=== PATIENT | female | born 2000 | race African-American/Black ===

== ENCOUNTER 2020-08-18 19:12 | Emergency (ER) | payer SELFPAY ==
[~2020-08-18] VITALS: Ht 172.7 cm; Wt 104.5 kg
[2020-08-18 19:25] VITALS: BP 118/72
--- NOTE | 2020-08-18 19:49 | PHYS DOC ---
General Adult EDM: Chief Complaint: ABDOMINAL PAIN HPI: HPI: Patient is a 20-year-old female who presents with generalized abdominal pain, nausea/vomiting since last night. Patient states that the abdominal pain is constant, sharp. Patient denies diarrhea. Patient denies fever. Patient states she took something for nausea prior to arrival. She denies dysuria or frequency. Denies any medical history. (ENRICO DAILY APRN) Review of Systems: Review of Systems: Constitutional: Denies fever or chills Eyes: Denies change in visual acuity HENT: Denies nasal congestion or sore throat Respiratory: Denies cough or shortness of breath Cardiovascular: Denies chest pain or edema GI: Reports abdominal pain, nausea, vomiting. Denies bloody stools or diarrhea : Denies dysuria Musculoskeletal: Denies back pain or joint pain Integument: Denies rash Neurologic: Denies headache, focal weakness or sensory changes Endocrine: Denies polyuria or polydipsia Lymphatic: Denies swollen glands Psychiatric: Denies depression or anxiety (ENRICO DAILY APRN) Allergies: Allergies: Allergies Coded Allergies Type Severity Reaction Last Updated Verified No Known Drug Allergies 08/18/20 No (ENRICO DAILY APRN) Physical Exam: PE: Constitutional: Well developed, well nourished, no acute distress, non-toxic appearance. HENT: Normocephalic, atraumatic, bilateral external ears normal, oropharynx moist, no oral exudates, nose normal. Eyes: PERRLA, EOMI, conjunctiva normal, no discharge. Neck: Normal range of motion, no tenderness, supple, no stridor. Cardiovascular:Heart rate regular rhythm, no murmur Lungs & Thorax: Bilateral breath sounds clear to auscultation Abdomen: Bowel sounds normal, soft, no tenderness Skin: Warm, dry, no erythema, no rash. Back: No tenderness, no CVA tenderness. Extremities: No tenderness, no cyanosis, no clubbing, ROM intact, no edema. Neurologic: Alert and oriented X 3, normal motor function, normal sensory function, no focal deficits noted. Psychologic: Affect normal, judgement normal, mood normal. (ENRICO DAILY APRN) EKG: EKG: [] (ENRICO DAILY APRN) Radiology/Procedures: Radiology/Procedures: [] (ENRICO DAILY APRN) Impressions: CT STUDY OF THE ABDOMEN AND PELVIS WITHOUT CONTRAST CLINICAL INDICATIONS: Abdominal pain. TECHNIQUE: Noncontrast helical CT scanning of the abdomen and pelvis was performed. Without contrast, the sensitivity to detect organ pathology and GI tract pathology is decreased. PQRS compliance Statement One or more of the following individualized dose reduction techniques were utilized for this study: 1. Automated exposure control 2. Adjustment of the mA and/or kV according to patient size 3. Use of iterative reconstruction technique COMPARISON: None available. FINDINGS: The liver and spleen and pancreas are unremarkable on this noncontrast study. Gallbladder is small. No extrahepatic biliary ductal dilatation is seen. No adrenal mass is evident. No hydronephrosis or hydroureter or ureteral stone is seen. Urinary bladder wall is smooth. No uterine mass is seen. No dominant ovarian cyst or mass is apparent. No focal aneurysmal dilatation of the abdominal aorta is seen. No bulky abdominal or pelvic lymphadenopathy is seen. Sigmoid diverticulosis is seen without diverticulitis. Terminal ileum is unremarkable. The appendix is normal. No obstructive bowel pattern is seen. No free air or free fluid or mesenteric edema is seen. No lung base consolidation is evident. No lytic process is seen. IMPRESSION: No acute abnormality. Electronically signed by: Mauro Sheridan MD (08/18/2020 10:10 PM) [id number] DICTATED AND SIGNED BY: MAURO SHERIDAN MD DATE: 08/18/202204 CC: EDY NGUYEN DO; ENRICO DAILY APRN; PCP,NO ~MTH0 0 (EDY NGUYEN DO) Heart Score: C/O Chest Pain: No Risk Factors: Risk Factors: DM, Current or recent (<one month) smoker, HTN, HLP, family history of CAD, obesity. Risk Scores: Score 0 - 3: 2.5% MACE over next 6 weeks - Discharge Home Score 4 - 6: 20.3% MACE over next 6 weeks - Admit for Clinical Observation Score 7 - 10: 72.7% MACE over next 6 weeks - Early Invasive Strategies (ENRICO DAILY APRN) C/O Chest Pain: No (EDY NGUYEN DO) Course & Med Decision Making: Course & Med Decision Making Pertinent Labs and Imaging studies reviewed. (See chart for details) [] Patient is being seen in the emergency room for abdominal pain, nausea/vomiting since last night. Fluids given for dehydration. CT of abdomen and pelvis ordered. UA and ordered to rule out infection and/or . Patient requesting pain medication. Morphine given. Transfer of patient care to Dr. Nguyen (ENRICO DAILY APRN) Course & Med Decision Making The patient's labs are unremarkable. Her CT of the abdomen and pelvis is negative for acute findings. Her labs are unremarkable. Give the patient additional Reglan and Benadryl for her vomiting. Her vomiting is now controlled . I will discharge her with a prescription for Zofran ODT. She is ready to go home and go to bed. She is stable for discharge at this time. (EDY NGUYEN DO) Dragon Disclaimer: Dragon Disclaimer: This electronic medical record was generated, in whole or in part, using a voice recognition dictation system. (ENRICO DAILY APRN) Departure Departure: Impression: Primary Impression: Viral gastroenteritis Disposition: HOME / SELF CARE / HOMELESS Condition: STABLE Referrals: PCP,NO (PCP) Patient Instructions: Viral Gastroenteritis, [facility] Scripts Metoclopramide Hcl (REGLAN) 10 Mg Tablet 1 TAB PO TID PRN for VOMITING for 3 Days, #9 TAB 0 Refills Prov: EDY NGUYEN DO 08/18/20 Ondansetron (ONDANSETRON ODT) 4 Mg Tab.rapdis 1-2 TAB PO Q8HRS PRN for VOMITING, #16 TAB Prov: EDY NGUYEN DO 08/18/20 ENRICO DAILY APRN Aug 18, 2020 19:49 EDY NGUYEN DO Aug 18, 2020 22:23
[2020-08-18] MEDS ORDERED: ONDANSETRON PF 4 MG/2 ML VIAL. IVP ONE (20:00)
[2020-08-18] MEDS ORDERED: IV NORMAL SALINE 1,000ML 1,000 ML IV ONE (20:00)
[2020-08-18 20:21] LABS: BASO % 0 % (0-3); EOS % 1 % (0-3); HEMATOCRIT 36.1 % (36.0-47.0); HEMOGLOBIN 12.1 g/dL (12.0-15.5); LYMPH # 1.2 x10^3/uL (1.0-4.8); LYMPH % 17 % (24-48); MEAN CORPUSCULAR HEMOGLOBIN 31 pg (25-35); MEAN CORPUSCULAR HGB CONC 34 g/dL (31-37); MEAN CORPUSCULAR VOLUME 91 fL (79-100); MONO # 0.4 x10^3/uL (0.0-1.1); MONO % 5 % (0-9); NEUT # 5.4 x10^3uL (1.8-7.7); NEUT % 76 % (31-73); PLATELET COUNT 273 x10^3/uL (140-400); RED BLOOD COUNT 3.95 x10^6/uL (3.50-5.40); RED CELL DISTRIBUTION WIDTH 13.8 % (11.5-14.5); WHITE BLOOD COUNT 7.1 x10^3/uL (4.0-11.0)
[2020-08-18 20:24] LABS: U PREG PATIENT NEGATIVE (NEG)
[2020-08-18 20:30] LABS: BILIRUBIN,URINE NEG (NEG); CLARITY,URINE HAZY; COLOR,URINE YELLOW; GLUCOSE,URINE NEG (NEG); NITRITE,URINE NEG (NEG)
[2020-08-18] MEDS ORDERED: MORPHINE SULFATE 4 MG/ML DISP.SYRIN. IV ONE (20:30)
[2020-08-18 20:31] LABS: BACTERIA,URINE FEW /HPF (0-FEW); RBC,URINE 0 /HPF (0-2); SQUAMOUS EPITHELIAL CELL,UR OCC /LPF; WBC,URINE 0 /HPF (0-4)
[2020-08-18 20:34] LABS: CALCIUM 8.7 mg/dL (8.5-10.1); CREATININE 0.8 mg/dL (0.6-1.0); GFR 110.7; POTASSIUM 3.6 mmol/L (3.5-5.1)
[2020-08-18 20:40] LABS: ALBUMIN/GLOBULIN RATIO 1.1 (1.0-1.7); TOTAL BILIRUBIN 0.4 mg/dL (0.2-1.0); TOTAL PROTEIN 7.6 g/dL (6.4-8.2)
--- NOTE | 2020-08-18 21:11 | RAD ---
EXAMINATION: XR CHEST 1V CLINICAL HISTORY: Abdominal pain, N/V, H/O EXAM DATE/TIME: 08/18/2020 8:37 PM COMPARISON: None FINDINGS: Lines, Tubes, and Devices: None. Cardiomediastinal Silhouette: Within normal limits. Lungs and Pleura: No evidence of focal airspace consolidation or pleural effusion. Pulmonary vasculat ure unremarkable. Bones and Soft Tissues: No acute osseous abnormality. IMPRESSION: No evidence of acute cardiopulmonary abnormality. Electronically signed by: Wolf Rodriguez DO (08/18/2020 9:08 PM) GUY
--- NOTE | 2020-08-18 22:13 | RAD ---
CT STUDY OF THE ABDOMEN AND PELVIS WITHOUT CONTRAST CLINICAL INDICATIONS: Abdominal pain. TECHNIQUE: Noncontrast helical CT scanning of the abdomen and pelvis was performed. Without contrast, the sensitivity to detect organ pathology and GI tract pathology is decreased. PQRS compliance Statement One or more of the following individualized dose reduction techniques were utilized for this study: 1. Automated exposure control 2. Adjustment of the mA and/or kV according to patient size 3. Use of iterative reconstruction technique COMPARISON: None available. FINDINGS: The liver and spleen and pancreas are unremarkable on this noncontrast study. Gallbladder i s small. No extrahepatic biliary ductal dilatation is seen. No adrenal mass is evident. No hydronephr osis or hydroureter or ureteral stone is seen. Urinary bladder wall is smooth. No uterine mass is see n. No dominant ovarian cyst or mass is apparent. No focal aneurysmal dilatation of the abdominal aort a is seen. No bulky abdominal or pelvic lymphadenopathy is seen. Sigmoid diverticulosis is seen witho ut diverticulitis. Terminal ileum is unremarkable. The appendix is normal. No obstructive bowel patte rn is seen. No free air or free fluid or mesenteric edema is seen. No lung base consolidation is evid ent. No lytic process is seen. IMPRESSION: No acute abnormality. Electronically signed by: Jose Sheridan MD (08/18/2020 10:10 PM) [id number]
[2020-08-18] MEDS ORDERED: diphenhydrAMINE 50 MG/ML VIAL IVP ONE (22:30)
[2020-08-18] MEDS ORDERED: METOCLOPRAMIDE HCL 10 MG/2 ML VIAL. IVP ONE (22:30)
--- NOTE | 2020-08-18 22:31 | EKG ---
[facility] [address] [place] [address] Test Date: 2020-08-18 Test Time: 21:13:22 Pat Name: JESUS OVERTON Department: Room: Gender: F Law Reporter: SPENCER : 2000 Requested By: ENRICO DAILY Order Number: [id number] Reading MD: Measurements Intervals Doss Rate: 91 P: 55 TX: 164 QRS: 52 QRSD: 66 T: 14 QT: 346 QTc: 427 Interpretive Statements SINUS RHYTHM NORMAL ECG RI6.02 No previous ECG available for comparison
[2020-08-18] MEDS ORDERED: ONDA4TAB12 PO (22:36)
[2020-08-18] MEDS ORDERED: METO10TA81 PO (22:36)
== END 2020-08-18 22:44 | disposition home or self-care (01) ==
LOC: ER 19:12
DX: A08.4 Viral intestinal infection, unspecified (principal)
CPT/HCPCS: 36415; 71045; 74176; 80053; 81001; 81025; 83690; 85025; 93005; 96361; 96374; 96375; 99285; J1200; J2270; J2405; J2765; J7030

== ENCOUNTER 2021-04-18 22:24 | Emergency (ER) | payer BC ==
[~2021-04-18] VITALS: Ht 172.7 cm; Wt 97.9 kg
[~2021-04-18 22:24] MED LIST: METO10TA81 PO; ONDA4TAB12 PO
[2021-04-18 22:42] VITALS: BP 88/51
--- NOTE | 2021-04-18 22:48 | PHYS DOC ---
Past History Past Medical History: No Pertinent History Past Surgical History: Other Additional Past Surgical Histo: hernia Alcohol Use: None General Adult EDM: Chief Complaint: VAGINAL PROBLEM HPI: HPI: "..I got this vaginal discharge.. and it carcamo ..and I hurt down in my vaginal area..." Patient is a 20 year old female who presents with above hx and complaints of vaginal discharge and pain. Patient currently only 1 sexual partner. Has had 10 lifetime sex partners. No history of previous STDs. No history of immunosuppression. No history of recent travel. No history of trauma. Has some dysuria. Patient refusing lab tests but does want a exam of her vaginal area. Review of Systems: Review of Systems: Constitutional: Denies fever or chills Eyes: Denies change in visual acuity HENT: Denies nasal congestion or sore throat Respiratory: Denies cough or shortness of breath Cardiovascular: Denies chest pain or edema GI: Denies abdominal pain, nausea, vomiting, bloody stools or diarrhea : Complains of dysuria and vaginal discharge Musculoskeletal: Denies back pain or joint pain Integument: Denies rash Neurologic: Denies headache, focal weakness or sensory changes Endocrine: Denies polyuria or polydipsia Lymphatic: Denies swollen glands Psychiatric: Denies depression or anxiety Family History: Family History: Noncontributory presentation Current Medications: Current Meds: See nursing for home meds Allergies: Allergies: Allergies Coded Allergies Type Severity Reaction Last Updated Verified No Known Drug Allergies 08/18/20 No Physical Exam: PE: Constitutional: Moderate acute distress, non-toxic appearance. [] HENT: Normocephalic, atraumatic, bilateral external ears normal, oropharynx moist, no oral exudates, nose normal. [] Eyes: PERRLA, EOMI, conjunctiva normal, no discharge. [] Neck: Normal range of motion, no tenderness, supple, no stridor. [] Cardiovascular:Heart rate regular rhythm, no murmur [] Lungs & Thorax: Bilateral breath sounds equal apex on auscultation [] Abdomen: Bowel sounds normal, soft, lower pelvic tenderness, no masses, no pulsatile masses. Pelvic exam patient has discolored white discharge. On exam does have marked discomfort and cervical motion tenderness. There is infl ammation throughout the vaginal area and cervix area. Rectal exam nontender hard stool.. Mild rebound pain to lower pelvic area Skin: Warm, dry, no erythema, no rash. [] Back: No tenderness, no CVA tenderness. [] Extremities: No tenderness, no cyanosis, no clubbing, ROM intact, no edema. No psoas sign. Neurologic: Alert and oriented X 3, normal motor function, normal sensory function, no focal deficits noted. [] Psychologic: Affect anxious, judgement normal, mood normal. [] Current Patient Data: Vital Signs: Vital Signs Date Time Temp Pulse Resp B/P (MAP) Pulse Ox O2 Delivery O2 Flow Rate FiO2 04/18/21 22:42 97.9 83 18 88/51 (63) 97 Room Air EKG: EKG: [] Radiology/Procedures: Radiology/Procedures: [] Heart Score: C/O Chest Pain: N/A Risk Factors: Risk Factors: DM, Current or recent (<one month) smoker, HTN, HLP, family history of CAD, obesity. Risk Scores: Score 0 - 3: 2.5% MACE over next 6 weeks - Discharge Home Score 4 - 6: 20.3% MACE over next 6 weeks - Admit for Clinical Observation Score 7 - 10: 72.7% MACE over next 6 weeks - Early Invasive Strategies Course & Med Decision Making: Course & Med Decision Making Pertinent Labs and Imaging studies reviewed. (See chart for details) Patient practice safe sex. Use of vaginal common or partner should use a condom. Partner should be also checked for STD. Patient to take doxycycline 100 mg twice a day for the next 14 days and then take Diflucan 100 mg daily for 3 days. Patient was given a dose of Flagyl 2000 mg and Zithromax 1000 mg while in the ED. Follow-up cultures. . Impression: 1. Vaginal discharge and cervicitis [] Dragon Disclaimer: Dragon Disclaimer: This electronic medical record was generated, in whole or in part, using a voice recognition dictation system. Departure Departure: Referrals: PCP,NO (PCP) Scripts Fluconazole (DIFLUCAN) 100 Mg Tablet 100 MG PO DAILY for post antibiotics for 3 Days, #3 TAB Prov: RYLEE FAN MD 04/19/21 Doxycycline Monohydrate (DOXYCYCLINE MONOHYDRATE) 100 Mg Capsule 1 CAP PO BID for cervicitis, #14 CAP Prov: RYLEE FAN MD 04/19/21 Jenny Disclaimer This chart was dictated in whole or in part using Voice Recognition software in a busy, high-work load, and often noisy Emergency Department environment. It may contain unintended and wholly unrecognized errors or omissions. RYLEE FAN MD Apr 18, 2021 22:48
[2021-04-18] MEDS ORDERED: IV RINGERS SOLUTION,LACTATED 1,000 ML IV SCH (23:00)
[2021-04-18 23:12] LABS: BACTERIA,URINE FEW /HPF (0-FEW); BILIRUBIN,URINE NEG (NEG); CLARITY,URINE HAZY; COLOR,URINE YELLOW; GLUCOSE,URINE NEG (NEG); NITRITE,URINE NEG (NEG); RBC,URINE 0 /HPF (0-2); SQUAMOUS EPITHELIAL CELL,UR MOD /LPF; UROBILINOGEN,URINE 0.2 mg/dL (0.2 mg/dL)
[2021-04-19] MEDS ORDERED: metroNIDAZOLE 500 MG TABLET PO ONE (01:00)
[2021-04-19] MEDS ORDERED: ONDANSETRON ODT 4 MG TAB.RAPDIS PO ONE (01:00)
[2021-04-19] MEDS ORDERED: AZITHROMYCIN 250 MG TABLET. PO ONE (01:00)
[2021-04-19] MEDS ORDERED: IBUPROFEN 600 MG TABLET. PO ONE ×2 (01:30)
[2021-04-19] MEDS ORDERED: FLUC100T7 PO (01:45)
[2021-04-19] MEDS ORDERED: DOXY-181 PO (01:45)
[2021-04-23 08:53] LABS: CHLAMYDIA PROBE Negative (Negative)
== END 2021-04-19 01:49 | disposition home or self-care (01) ==
LOC: ER 22:24
DX: N72 Inflammatory disease of cervix uteri (principal); N89.8 Other specified noninflammatory disorders of vagina
CPT/HCPCS: 81001; 81025; 87086; 87491; 87591; 99284; Q0111; Q0162; 36415

== ENCOUNTER 2021-05-21 14:27 | Emergency (ER) | payer BC ==
[~2021-05-21] VITALS: Ht 172.7 cm; Wt 97.9 kg
[~2021-05-21 14:27] MED LIST changes: +DOXY-181 PO; +FLUC100T7 PO
[2021-05-21 14:54] VITALS: BP 120/49
--- NOTE | 2021-05-21 14:56 | PHYS DOC ---
Past History Past Medical History: No Pertinent History Past Surgical History: Other Additional Past Surgical Histo: hernia Alcohol Use: None Adult General Chief Complaint Chief Complaint: LOWEREXTREMITY INJURY HPI HPI Patient is a 29-year-old female who presents for left knee injury. Reports injury onset was 1 night prior. Reports she was in her closet and stepped backwards suffering a hyperextension type injury. She did not fall, no loss of consciousness, no changes in motor or sensory or neuro function. Reports she has pain with weightbearing but otherwise has been ambulatory without any obvious joint laxity since injury onset. She has no prior injuries to left knee. She has not taken anything for the pain. Admits she is otherwise healthy with no medical issues Review of Systems Review of Systems Fourteen body systems of review of systems have been reviewed. See HPI for pertinent positives and negative responses, other amin all other systems are negative, non-pertinent or non-contributory Allergies Allergies Allergies Coded Allergies Type Severity Reaction Last Updated Verified No Known Drug Allergies 08/18/20 No Physical Exam Physical Exam Constitutional: Well developed, well nourished, no acute distress, non-toxic appearance. Smells of marijuana HENT: Normocephalic, atraumatic, bilateral external ears normal, oropharynx moist, no oral exudates, nose normal. Eyes: PERRLA, EOMI, conjunctiva normal, no discharge. Neck: Normal range of motion, no tenderness, supple, no stridor. Cardiovascular: Heart rate regular, sinus rhythm, no murmurs rubs or gallops Lungs & Thorax: Bilateral breath sounds clear to auscultation Abdomen: Bowel sounds normal, soft, no tenderness, no masses, no pulsatile ma sses. Nonsurgical abdomen, no peritoneal signs Skin: Warm, dry, no erythema, no rash. Back: No tenderness, no CVA tenderness. Extremities: Tenderness along medial joint line of left knee with otherwise unremarkable formal examinations to left hip, knee and left lower extremity. Specifically negative anterior and posterior Henok/posterior drawer test/valgus and varus strain testing. No cyanosis, no clubbing, ROM intact Neurologic: Alert and oriented X 3, grossly normal motor & sensory function, no focal deficits noted. Psychologic: Affect normal, judgement normal, mood normal. Current Patient Data Vital Signs Vital Signs Date Time Temp Pulse Resp B/P (MAP) Pulse Ox O2 Delivery O2 Flow Rate FiO2 05/21/21 14:54 98.3 121 16 120/49 (72) 99 Room Air Vital Signs Date Time Temp Pulse Resp B/P (MAP) Pulse Ox O2 Delivery O2 Flow Rate FiO2 05/21/21 14:54 98.3 121 16 120/49 (72) 99 Room Air EKG EKG [] Radiology/Procedures Radiology/Procedures Study: XR KNEE _3 VIEWS_LT Indication: Fall. Comparison: None. Findings: No acute fracture. Slightly prominent craniocaudal dimension of the lateral femorotibial joint space. Smooth undulation of the trochlea on the lateral view not definitively pathologic. No appreciable joint effusion. Normally located patella. Impression: 1. No acute fracture or traumatic malalignment. 2. Somewhat prominent craniocaudal dimension of the lateral femorotibial compartment. This is nonspecific but could indicate a discoid lateral meniscus. Electronically signed by: KADEEM PIERCE MD (05/21/2021 3:09 PM) [facility] Heart Score C/O Chest Pain: No Risk Factors: Risk Factors: DM, Current or recent (<one month) smoker, HTN, HLP, family history of CAD, obesity. Risk Scores: Risk Factors: DM, Current or recent (<one month) smoker, HTN, HLP, family history of CAD, obesity. Course & Med Decision Making Course & Med Decision Making ABCs unremarkable. I disclosed entirety of ER findings and discussed most likely diagnosis of musculoskeletal knee pain due to hyperextension injury. Other diagnoses were discussed with patient such as muscle/ligamentous/tendon injury but all deemed less likely causes of patient's presentation. Plan of care discussed at length with need for close outpatient follow-up to review today's ER visit stressed. Strict return precautions were also discussed at length with good understanding verbalized by patient. NSAIDs and/or Tylenol advised for pain. Patient voiced understanding and agreement with the plan. Patient knows to come back for repeat evaluation if concerning signs or symptoms present prior to outpatient follow-up. Hemodynamically stable, ambulatory and well-appearing at time of disposition. Dragon Disclaimer Dragon Disclaimer This electronic medical record was generated, in whole or in part, using a voice recognition dictation system. Departure Departure: Impression: Primary Impression: Left knee pain Disposition: HOME / SELF CARE / HOMELESS Condition: STABLE Referrals: PCP,NO (PCP) Patient Instructions: Knee Exercises, Generic, SportsMed, Knee Pain Additional Instructions: You were seen for musculoskeletal pain. You should return to the ED if you develop worsening pain, fever, numbness, tingling, weakness, or any other new or concerning symptoms. Your pain is most likely due to a muscle strain and should improve with ibuprofen and/or Tylenol, stretching, and activity. If it does not improve you should follow up with a primary care doctor. NICHELLE MORE DO May 21, 2021 14:56
--- NOTE | 2021-05-21 15:12 | RAD ---
Study: XR KNEE _3 VIEWS_LT Indication: Fall. Comparison: None. Findings: No acute fracture. Slightly prominent craniocaudal dimension of the lateral femorotibial joint space. Smooth undulation of the trochlea on the lateral view not definitively pathologic. No appreciable adan int effusion. Normally located patella. Impression: 1. No acute fracture or traumatic malalignment. 2. Somewhat prominent craniocaudal dimension of the lateral femorotibial compartment. This is nonspec ific but could indicate a discoid lateral meniscus. Electronically signed by: KADEEM PIERCE MD (05/21/2021 3:09 PM) [facility]
== END 2021-05-21 15:38 | disposition home or self-care (01) ==
LOC: ER 14:27
DX: M25.562 Pain in left knee (principal)
CPT/HCPCS: 73562; 99283

== ENCOUNTER → 2021-09-15 | Outpatient (CLI) | payer BC ==
[2021-09-12 04:46] VITALS: BP 145/80
== END ==
LOC: LAB 14:46
PROVIDERS: ATTEND Obstetrics & Gynecology
DX: Z34.91 Encounter for supervision of normal pregnancy, unspecified, first trimester (principal)
CPT/HCPCS: 36415; 84702

== ENCOUNTER 2021-09-21 12:42 | Emergency (ER) | payer BC ==
[~2021-09-21] VITALS: Ht 170.2 cm; Wt 94.1 kg
[2021-09-21 12:42] VITALS: BP 119/61
[2021-09-21 14:10] LABS: BACTERIA,URINE 0 /HPF (0-FEW); CLARITY,URINE CLEAR; COLOR,URINE YELLOW; GLUCOSE,URINE NEG (NEG); NITRITE,URINE NEG (NEG); RBC,URINE >40 /HPF (0-2); SQUAMOUS EPITHELIAL CELL,UR FEW /LPF; UROBILINOGEN,URINE 0.2 mg/dL (0.2 mg/dL); WBC,URINE 0 /HPF (0-4)
[2021-09-21 14:15] LABS: BASO # 0.1 x10^3/uL (0.0-0.2); BASO % 1 % (0-3); EOS % 1 % (0-3); HEMOGLOBIN 11.3 g/dL (12.0-15.5); LYMPH # 1.6 x10^3/uL (1.0-4.8); LYMPH % 27 % (24-48); MEAN CORPUSCULAR HEMOGLOBIN 32 pg (25-35); MEAN CORPUSCULAR HGB CONC 34 g/dL (31-37); MEAN CORPUSCULAR VOLUME 93 fL (79-100); MONO # 0.4 x10^3/uL (0.0-1.1); MONO % 7 % (0-9); NEUT # 3.9 x10^3uL (1.8-7.7); NEUT % 64 % (31-73); PLATELET COUNT 267 x10^3/uL (140-400); RED BLOOD COUNT 3.53 x10^6/uL (3.50-5.40); RED CELL DISTRIBUTION WIDTH 14.2 % (11.5-14.5)
--- NOTE | 2021-09-21 14:16 | PHYS DOC ---
Past History Past Medical History: No Pertinent History Past Surgical History: No Surgical History Additional Past Surgical Histo: hernia Alcohol Use: None General Adult EDM: Chief Complaint: VAGINAL BLEEDING HPI: HPI: Patient is a 21-year-old female who presents the emergency department for vaginal bleeding in . Patient reports that this morning she noticed bright red blood when she wiped and it has increased. She denies any abdominal cramping or vomiting. She reports she is approximately 8 weeks , last menstrual period is July 25. Her NET WEB DEVELOPER is Dr. Holcomb at [facility]. Patient reports that she has had intermittent vaginal bleeding throughout her . She reports that she had an ultrasound last Wednesday and is supposed to get another one in 2 days. She reports that they are mo nitoring her beta hCG levels every 2 days with the last 1 being 3 days ago and it was 28,000. Review of Systems: Review of Systems: Constitutional: Denies fever or chills GI: See HPI : See HPI, denies dysuria Allergies: Allergies: Allergies Coded Allergies Type Severity Reaction Last Updated Verified No Known Drug Allergies 08/18/20 No Physical Exam: PE: Constitutional: Well developed, well nourished, no acute distress, non-toxic appearance. [] HENT: Normocephalic, atraumatic, bilateral external ears normal, oropharynx moist, no oral exudates, nose normal. [] Eyes: PERRL, EOMI, conjunctiva normal, no discharge. [] Neck: Normal range of motion, no tenderness, supple, no stridor. [] Cardiovascular:Heart rate regular rhythm, no murmur [] Lungs & Thorax: Bilateral breath sounds clear to auscultation [] Abdomen: Bowel sounds normal, soft, no tenderness, no abdominal rigidity, no masses, no pulsatile masses. [] Skin: Warm, dry, no erythema, no rash. [] Back: No tenderness, no CVA tenderness. [] Extremities: No tenderness, no cyanosis, no clubbing, ROM intact, no edema. [] Neurologic: Alert and oriented X 3, normal motor function, normal sensory function, no focal deficits noted. [] Psychologic: Affect normal, judgement normal, mood normal. [] Current Patient Data: Labs: Laboratory Tests Test 09/21/21 12:43 09/21/21 13:27 POC Urine HCG, Qualitative hcg positive (Negative) Urine Collection Type Clean catch Urine Color Yellow Urine Clarity Clear Urine pH 6.5 Urine Specific [place] >=1.030 Urine Protein Neg (NEG-TRACE) Urine Glucose (UA) Neg mg/dL (NEG) Urine Ketones (Stick) Neg mg/dL (NEG) Urine Blood Large (NEG) Urine Nitrite Neg (NEG) Urine Bilirubin Neg (NEG) Urine Urobilinogen Dipstick 0.2 mg/dL (0.2 mg/dL) Urine Leukocyte Esterase Neg (NEG) Urine RBC >40 /HPF (0-2) Urine WBC 0 /HPF (0-4) Urine Squamous Epithelial Cells Few /LPF Urine Bacteria 0 /HPF (0-FEW) EKG: EKG: [] Radiology/Procedures: Radiology/Procedures: [] Heart Score: C/O Chest Pain: N/A Risk Factors: Risk Factors: DM, Current or recent (<one month) smoker, HTN, HLP, family history of CAD, obesity. Risk Scores: Score 0 - 3: 2.5% MACE over next 6 weeks - Discharge Home Score 4 - 6: 20.3% MACE over next 6 weeks - Admit for Clinical Observation Score 7 - 10: 72.7% MACE over next 6 weeks - Early Invasive Strategies Course & Med Decision Making: Course & Med Decision Making Pertinent Labs and Imaging studies reviewed. (See chart for details) [] Patient is a 21-year-old female who presents to the emergency department for vaginal bleeding in . She only has blood when she wipes and she is not saturating any pads. Patient reports she is approximately 8 weeks , n ot surgical. Fever first. Patient has been seen multiple times in this emergency department at [facility] for similar complaints. She reports that her beta hCG 3 days ago was 28,000. Her last ultrasound was 5 days ago and she is scheduled for another 1 in 2 days. After reviewing patient's ultrasound reports on the ultrasound 9 days ago she did not have any gestational sac visualized and did have free fluid. She did have an ultrasound 4 days ago which did not show a gestational sac and had decreased pelvic fluid may advise correlating with a beta hCG level. Blood work was obtained in the emergency department and they are unremarkable, her hemoglobin was 11.3. Urinalysis was negative. Patient's urine hCG was positive. She is Rh+ per blood bank. Beta- hCG obtained. Patient hCG was 4415. Patient advised to follow-up with her NET WEB DEVELOPER as previously scheduled. I discussed with patient all findings and diagnostic testing as well as the need to follow-up with PCP for further evaluation and treatment or return to the ER if any new or worsening symptoms. Strict return precautions were also discussed at length. Patient voiced understanding and agreement with the plan. Patient is hemodynamically stable at the time of disposition. Dragon Disclaimer: Dragon Disclaimer: This electronic medical record was generated, in whole or in part, using a voice recognition dictation system. Departure Departure: Impression: Primary Impression: Vaginal bleeding affecting early Disposition: HOME / SELF CARE / HOMELESS Condition: GOOD Referrals: PCP,NO (PCP) Patient Instructions: Vaginal Bleeding During , First Trimester Additional Instructions: You are seen in the emergency department today for vaginal bleeding in . At this time your beta hCG level is 4415. Please follow-up with your NET WEB DEVELOPER as previously scheduled and you will need to have your beta hCG level checked in 2 days. Return to this emergency department or go to [facility] where your NET WEB DEVELOPER is if you develop worsening of your vaginal bleeding, abdominal pain, tractable nausea vomiting or any new or worsening concerns. MONISHA JACOBSON DEPUTY SHERIFF GENERALIST September 21, 2021 14:16
[2021-09-21 14:20] LABS: CREATININE 0.8 mg/dL (0.6-1.0); GFR 109.6; POTASSIUM 3.5 mmol/L (3.5-5.1)
[2021-09-21 14:26] LABS: ALBUMIN 3.7 g/dL (3.4-5.0); ALBUMIN/GLOBULIN RATIO 1.1 (1.0-1.7); TOTAL BILIRUBIN 0.3 mg/dL (0.2-1.0); TOTAL PROTEIN 7.1 g/dL (6.4-8.2)
== END 2021-09-21 17:30 | disposition home or self-care (01) ==
LOC: ER 12:42
DX: O46.91 Antepartum hemorrhage, unspecified, first trimester (principal); Z3A.08 8 weeks gestation of pregnancy
CPT/HCPCS: 36415; 80053; 81001; 81025; 84702; 85025; 86900; 86901; 99283; 99284